=== PATIENT | female | born 1970 | race African-American/Black ===

== ENCOUNTER 2019-06-22 05:45 | Observation (INO) | payer BC ==
[~2019-06-22] VITALS: Ht 175.3 cm; Wt 100.0 kg
[2019-06-22] VITALS (15 sets, daily range): BP systolic 158–224; BP diastolic 54–94
[2019-06-22 06:31] LABS: HEMATOCRIT 29.6 % (37.0-47.0); IMMATURE GRANULOCYTES 0.3 % (0.0-5.0); MEAN CORPUSCULAR HGB 18.6 pG CALC (26.0-32.0); MEAN CORPUSCULAR HGB CONC 29.4 g/L CALC (32.0-36.0); NEUT# 7.05 thou/uL (2.00-7.15); RED BLOOD COUNT 4.68 mill/uL (4.20-5.60); RED CELL DISTRI WIDTH 20.2 % (11.5-15.5)
[2019-06-22 06:50] LABS: ALKALINE PHOSPHATASE 107 u/l (38-126); AMYLASE 71 u/l (30-110); BILIRUBIN, TOTAL 0.6 mg/dL (0.0-1.4); BUN 19 mg/dL (7-17); BUN/CREATININE RATIO 12 (12-20 (CALC)); CHLORIDE 103 mmol/l (95-108); CREATININE 1.5 mg/dL (0.5-1.0); ETHYL ALCOHOL 0 mg/dl (0-30); GFR 37 ML/MIN (>=60 (CALC)); GFR FOR AFR.AMER. 45 ML/MIN (>=60 (CALC)); LIPASE 163 u/l (23-300); POTASSIUM 3.9 mmol/l (3.5-5.1); SGOT/AST 24 u/l (14-36); SODIUM 141 mmol/l (137-146); TOTAL PROTEIN 7.7 g/dL (6.3-8.2)
[2019-06-22 06:53] LABS: ALBUMIN 4.4 g/dL (3.2-5.0); ANION GAP 14 (6-22 (CALC)); CARBON DIOXIDE 28 mmol/l (22-30)
[2019-06-22 06:57] LABS: HEMOGLOBIN 8.7 g/dl (12.0-16.0); MEAN CELL VOLUME 63.2 fL CALC (80.0-100.0)
[2019-06-22 07:01] LABS: MYOGLOBIN 43 ng/mL (0 - 62)
--- NOTE | 2019-06-22 07:06 | NUR ---
PT FEELING MUCH BETTER. BP STILL ELEVATED. REPORT TO KESHIA. CARE RELINQUISHED. FAMILY AT BEDSIDE.
--- NOTE | 2019-06-22 07:15 | NUR ---
AND AWARE OF PT GFR [address] WITH CONTRAST. CT STAFF AWARE
[2019-06-22 07:35] LABS: BARBITURATES NEGATIVE (NEGATIVE); COCAINE NEGATIVE (NEGATIVE); METHADONE NEGATIVE (NEGATIVE); OXCYCODONE NEGATIVE (NEGATIVE); TETRAHYDROCANNABIONOL NEGATIVE (NEGATIVE); TRICYLIC ANTIDEPRESSANTS NEGATIVE (NEGATIVE)
[2019-06-22 07:38] LABS: URINE BILIRUBIN - DIPSTICK NEGATIVE (NEGATIVE); URINE BLOOD DIPSTICK NEGATIVE (NEGATIVE); URINE COLOR YELLOW; URINE GLUCOSE - DIPSTICK NEGATIVE (NEGATIVE); URINE KETONE NEGATIVE (NEGATIVE); URINE LEUK ESTERASE NEGATIVE (NEGATIVE); URINE NITRITE - DIPSTICK NEGATIVE (Negative); URINE PROTEIN - DIPSTICK 30 mg/dL (NEG-TRACE); URINE UROBILINOGEN - DIPSTICK 0.2 E.U./dL (0.2)
[2019-06-22 07:40] LABS: URINE RBC 0-2 RBC/hpf (0-5); URINE WBC 0-2 WBC/hpf (0-5)
--- NOTE | 2019-06-22 07:49 | NUR ---
PT STATES PAIN STARTING TO RETURN, WILL NOTIFY
--- NOTE | 2019-06-22 08:10 | NUR ---
AWARE OF MANUAL BP 240/90
--- NOTE | 2019-06-22 08:31 | NUR ---
PT MEDICATED FOR B/P AND CHRONOMETER ASSEMBLER AND ADJUSTER APPLIED
--- NOTE | 2019-06-22 09:05 | NUR ---
REPEAT BP 230/90 IN R ARM AND 250/90 IN LEFT ARM MANUAL. AT BEDSIDE AND AWARE
--- NOTE | 2019-06-22 09:08 | NUR ---
MEDICATED WITH HYDALAZINE ORDERED
--- NOTE | 2019-06-22 09:42 | NUR ---
B/P REMAINS ELEVATD, PLANS TO START CARDENE GTT AND ADMIT TO ICU
--- NOTE | 2019-06-22 09:54 | NUR ---
REPORT RECIEVED FROM KESHIA ESQUEDA
--- NOTE | 2019-06-22 10:58 | NUR ---
REPORT CALLED TO ICU, THERESA ESQUEDA ACCEPTED PT
--- NOTE | 2019-06-22 11:05 | NUR ---
PT TO ICU BED 5 VIA STRETCHER ACCOMPANIED BY ER NURSE. PT ABLE TO TRANSFER SELF TO BED. PT IS ADMITTED WITH HYPERTENSIVE URGENCY ON A GRETCHEN GTT. CARDENE CURRENTLY AT 10MG/HR. BP 224/90 UPON ARRIVAL TO ICU. HR SR 70S ON MONITOR. PT IS ALERT AND ORIENTED X3. ADMISSION ASSESSMENT COMPLETED AT THIS TIME. IV PATENT X1. ORIENTED PT TO ROOM AND UNIT AND CALL LIGHT SYSTEM PT VERBALIZED UNDERSTANDING. CALL LIGHT IN REACH. WILL CONTINUE TO MONITOR.
--- NOTE | 2019-06-22 11:18 | NUR ---
ELISHA GTT TITRATED PER TITRATION CHARTING
--- NOTE | 2019-06-22 11:30 | NUR ---
PT OFFERRED NOON MEAL AND REFUSED STATES THAT DAUGHTER WILL BRIN HER LUNCH
--- NOTE | 2019-06-22 12:15 | NUR ---
RT AT BEDSIDE FOR EKG
--- NOTE | 2019-06-22 12:29 | NUR ---
LAB AT BEDSIDE AT THIS TIME FOR TROPONIN
--- NOTE | 2019-06-22 12:40 | NUR ---
DR PRABHAKAR AT BEDSIDE AT THIS TIME
--- NOTE | 2019-06-22 13:52 | NUR ---
PT RESTING IN BED WATCHING TV. RESP ARE EVEN AND UNLABORED. NO DISTRESS NOTED. CALL LIGHT IN REACH. WILL CONTINUE TO MONITOR.
--- NOTE | 2019-06-22 14:43 | NUR ---
PT TAKING OFF BLOOD PRESSURE CUFF. CONTINUE TO REINFORCE THAT PATIENT SHOULD LEAVE CUFF IN PLACE DUE TO CARDENE DRIP INFUSING. PT STATES THAT IT HURTS HER ARM AND SHE WILL TAKE IT OFF. PT REFUSES TO HAV EBP TAKEN EVERY 15 MINUTES FOR TITRATION. WILL MONITOR EVERY HOUR
--- NOTE | 2019-06-22 15:10 | NUR ---
PT WITH COMPLAINTS OF BACK PAIN AND ABDOMINAL PAIN. DR PRABHAKAR NOTIFIED NEW ORDERS RECIEVED.
--- NOTE | 2019-06-22 16:00 | NUR ---
PT RESTING IN BED WATCHING TV. RESP ARE EVEN AND UNLABORED. NO DISTRESS NOTED. CALL LIGHT IN REACH.WILL CONTINUE TO MONITOR
--- NOTE | 2019-06-22 17:20 | NUR ---
PT SET UP FOR PM MEAL.
--- NOTE | 2019-06-22 17:58 | NUR ---
LAB AT BEDSIDE AT THIS TIME TO DRAW SERIAL TROPONIN.
--- NOTE | 2019-06-22 19:00 | NUR ---
REPORT RECEIVED FROM DHEERAJ CARDENAS. PT RESTING IN BED SEMI FOWLERS; ALERT AND ORIENTED WITH FAMILY AT BEDSIDE. SHE DOES C/O SOME EPIGASTRIC DISCOMFORT. RESPIRATIONS EVEN AND UNLABORED ON ROOM AIR. ASSESSMENT COMPLETED AT THIS TIME; WNL. CARDENE INFUSING AT 15MG/HR; BLOOD PRESSURE 181/69 HR 80. NEW BAG OF CARDENE INITIATED. PT REQUESTED THAT IV SITE TO LAC BE D/C'D; EXPLAINED POTENTIAL NEED FOR 2ND IV AND PT INSISTS; 18G TO LAC D/C'D WITH TIP INTACT. PLAN OF CARE REVIEWED. PT ENCOURAGED TO VERBALIZE CONCERNS. STATES UNDERSTANDING. SAFETY MEASURES IN PLACE. CALL LIGHT WITHIN REACH.
--- NOTE | 2019-06-22 21:00 | NUR ---
PT AMBULATED TO BATHROOM TO VOID. CONTINUES TO C/O EPIGASTRIC PAIN; SCHEDULED HS MEDICATIONS ADMINISTERED. PT DECLINES ANY ADDITIONAL PAIN MEDICATION AT THIS TIME. NSR ON TELEMETRY.
--- NOTE | 2019-06-22 21:18 | NUR ---
TRAMADOL GIVEN FOR PERSISTANT ACHE 03/17 TO EPIGASTRIC AREA.
--- NOTE | 2019-06-22 22:33 | NUR ---
TRAMADOL INEFFECTIVE FOR PAIN; MORPHINE ADMINISTERED IV. SCHEDULED LISINOPRIL ALSO GIVEN.
--- NOTE | 2019-06-22 22:50 | NUR ---
MORPHINE WAS EFFECTIVE FOR PAIN; PT NOW REPORTS A 0/10, BUT NO HAS A HEADACHE. COOL CLOTH APPLIED TO HEAD. NEW BAG OF CARDENE INFUSING; CONTINUES AT 15MG/HR. BP 177/65 HR 75.
[2019-06-23] VITALS (25 sets, daily range): BP systolic 146–214; BP diastolic 52–76
--- NOTE | 2019-06-23 00:16 | NUR ---
LAB AT BEDSIDE.
--- NOTE | 2019-06-23 02:19 | NUR ---
PT AMBULATED TO BATHROOM TO VOID; NOW ASLEEP WITH EYES CLOSED AND NO SIGNS OF DISTRESS. RESPIRATIONS EVEN AND UNLABORED ON ROOM AIR. IV SITE APPEARS HEALTHY. CALL LIGHT WITHIN REACH.
--- NOTE | 2019-06-23 04:12 | NUR ---
BLOOD PRESSURE 161/60; JUST OVER TARGET BLOOD PRESSURE; WILL CONTINUE CARDENE DRIP AT MAX DOSE 15MG/HR AND CONTINUE TO MONITOR. PT ASLEEP WITH NO SIGNS OF DISTRESS. SAFETY MEASURES IN PLACE.
--- NOTE | 2019-06-23 04:55 | NUR ---
LAB AT BEDSIDE.
[2019-06-23 05:14] LABS: HEMOGLOBIN 7.6 g/dl (12.0-16.0); MEAN CELL VOLUME 63.7 fL CALC (80.0-100.0); MEAN CORPUSCULAR HGB 18.6 pG CALC (26.0-32.0); MEAN CORPUSCULAR HGB CONC 29.2 g/L CALC (32.0-36.0); RED BLOOD COUNT 4.08 mill/uL (4.20-5.60); RED CELL DISTRI WIDTH 20.1 % (11.5-15.5)
[2019-06-23 05:29] LABS: ANION GAP 10 (6-22 (CALC)); BUN 8 mg/dL (7-17); BUN/CREATININE RATIO 8 (12-20 (CALC)); CHLORIDE 111 mmol/l (95-108); GFR 59 ML/MIN (>=60 (CALC)); GFR FOR AFR.AMER. > 60 ML/MIN (>=60 (CALC)); POTASSIUM 3.6 mmol/l (3.5-5.1); SODIUM 138 mmol/l (137-146)
[2019-06-23 05:33] LABS: CARBON DIOXIDE 21 mmol/l (22-30)
--- NOTE | 2019-06-23 07:00 | NUR ---
PT RESTING IN BED AWAKE. PT IS ALERT AND ORIENTED X3. SHIFT ASSESSMENT COMPLETED AT THIS TIME. IV PATENT X1. CALL LIGHT IN REACH. WILL CONTINUE TO CLOSELY MONITOR.
--- NOTE | 2019-06-23 07:30 | NUR ---
PT ASSISTED UP TO RESTROOM TO VOID AND THEN TO CHAIR. PT PROVIDED ITEMS FOR PERSONAL HYGIENE AND AM CARE.
--- NOTE | 2019-06-23 07:50 | NUR ---
PT SET UP FOR PM MEAL
--- NOTE | 2019-06-23 08:20 | NUR ---
PT ASSISTED BACK TO BED. TOLERATED WELL
--- NOTE | 2019-06-23 08:56 | NUR ---
DR PRABHAKAR AT BEDSIDE AT THIS TIME
--- NOTE | 2019-06-23 11:27 | NUR ---
PT SET UP FOR NOON MEAL. VISITORS IN ROOM. WILL CONTINUE TO CLOSELY MONITOR.
--- NOTE | 2019-06-23 12:00 | NUR ---
PT RESTING INBED WATCHING TV. RESP ARE EVEN AND UNLABORED. NO DISTRESS NOTED. CALL LIGHT IN REACH. WILL CONTINUE TO CLOSELY MONITOR.
--- NOTE | 2019-06-23 13:48 | NUR ---
PT SITTING UP IN BED AWAKE WATCHING TV. PT RESP ARE EVEN AND UNLABORED. NO DISTRESS NOTED. CALL LIGHT IN REACH. WILL CONTINUE TO MONITOR.
--- NOTE | 2019-06-23 15:30 | NUR ---
RECIEVED REPORT FROM THERESA. PT RESTING IN BE WATCHING TV. NO NEEDS AT THIS TIME. WILL CONTINUE TO MONITOR.
--- NOTE | 2019-06-23 15:34 | NUR ---
PT SITTING UP ON SIDE OF BED. WATCHING TV. RESP ARE EVEN AND UNLABORED. NO DISTRESS NTOED. CALL LIGHT IN REACH. REPORT GIVEN TO MAGDA MARY.
--- NOTE | 2019-06-23 18:00 | NUR ---
pt sitting up on side of the bed with family at bedside. no needs at this time. call dunn in reach. will continue to monitor.
--- NOTE | 2019-06-23 19:00 | NUR ---
REPORT RECEIVED FROM TYRA MAN. PT SITTING UP IN BED; ALERT AND ORIENTED. C/O 6/10 LOWER BACK PAIN; TRAMADOL ADMINSITERED. SHE ALSO C/O CONSTIPATION AND REQUESTS A STOOL SOFTER; MILK OF MAGNESIA GIVEN WELL. RESPIRATIONS EVEN AND UNLABORED ON ROOM AIR. IV SITE APPEARS HEALTHY AND FLUSHES. PLAN OF CARE REVIEWED. PT ENCOURAGED TO VERABLIZE CONCERNS. STATES UNDERSTANDING. SAFETY MEASURES IN PLACE. CALL LIGHT WITHIN REACH.
--- NOTE | 2019-06-23 20:31 | NUR ---
TRAMADOL NOT EFFECTIVE; MORPHINE GIVEN FOR SEVERE LOWER BACK PAIN. PT AMBULATING IN ROOM AND REPOSITIONING. BLOOD PRESSURE REMAINS ELEVATED; SCHEDULED LISINOPRIL GIVEN. WILL CONTINUE TO MONITOR.
--- NOTE | 2019-06-23 23:33 | NUR ---
APRESOLINE ADMINSITERED FOR SBP IN THE 180'S. RT AT BEDSIDE EARLIER FOR BREATHING TREATMENT. NICOTINE PATCH APPLIED TO RIGHT UPPER ARM.
[2019-06-24] VITALS (7 sets, daily range): BP systolic 179–216; BP diastolic 62–81
--- NOTE | 2019-06-24 02:08 | NUR ---
PT AMBULATED TO BATHROOM TO VOID. DENIES PAIN AT THIS TIME. RESPIRATIONS EVEN AND UNLABORED. NO REQUESTS OR CONCERNS. BP 188/62. CALL LIGHT WITHIN REACH.
--- NOTE | 2019-06-24 04:39 | NUR ---
APRESOLINE ADMINSITERED FOR BP 197/78 HR 80.
--- NOTE | 2019-06-24 05:30 | NUR ---
LAB AT BEDSIDE.
[2019-06-24 05:41] LABS: HEMATOCRIT 27.3 % (37.0-47.0); HEMOGLOBIN 8.2 g/dl (12.0-16.0); MEAN CORPUSCULAR HGB 18.9 pG CALC (26.0-32.0); RED BLOOD COUNT 4.33 mill/uL (4.20-5.60); RED CELL DISTRI WIDTH 20.4 % (11.5-15.5)
--- NOTE | 2019-06-24 05:57 | NUR ---
RT AT BEDSIDE FOR BREATHING TREATMENT.
[2019-06-24 05:59] LABS: ANION GAP 11 (6-22 (CALC)); BUN 6 mg/dL (7-17); BUN/CREATININE RATIO 6 (12-20 (CALC)); CARBON DIOXIDE 21 mmol/l (22-30); CHLORIDE 110 mmol/l (95-108); GFR 59 ML/MIN (>=60 (CALC)); GFR FOR AFR.AMER. > 60 ML/MIN (>=60 (CALC)); POTASSIUM 3.9 mmol/l (3.5-5.1); SODIUM 137 mmol/l (137-146)
--- NOTE | 2019-06-24 07:20 | NUR ---
REPORT RECEIVED DOROTHEA GUERRERO RN. PT SITTING UPRIGHT IN BED. REPORTS DIFFICULTY SLEEPING. DENIES PAIN. NO SOB NOTED. REPORTING OF CONCERNS ENCOURAGED. CALL LIGHT REVIEWED AND IN REACH. PT STATES UNDERSTANDING.
[2019-06-24] MEDS ORDERED: AMLODIPINE BESYL5 MG PO (09:42)
[2019-06-24] MEDS ORDERED: PANTOPRAZOLE SO40 M1 PO (09:42)
[2019-06-24] MEDS ORDERED: LISINOPRIL20 M1 PO (09:42)
[2019-06-24] MEDS ORDERED: FERR SULFATE325 MG PO (09:44)
--- NOTE | 2019-06-24 10:36 | NUR ---
DR. PRABHAKAR IN TO SEE PT. PLAN OF CARE DISCUSSED. DISCHARGE HOME, COMPLAINCE W/ MEDS, SMOKING/ALCOHOL CESSATION DISCUSSED. PT STATES UNDERSTANDING. BP STILL ELEVATED, 190/74, DR. PRABHAKAR AWARE.
--- NOTE | 2019-06-24 10:53 | NUR ---
Discharge instructions given. Patient verbalizes understanding of same. Discharged in stable condition via Wheelchair to Home with family. All belongings sent with pt.
== END 2019-06-24 10:53 | disposition home or self-care (01) | DRG 305 ==
LOC: ED 05:45 → ED-I 09:30 → ED 10:00 → ICU 10:01
PROVIDERS: Family Medicine; ADMIT Internal Medicine; ATTEND Internal Medicine
DX: I16.0 Hypertensive urgency (principal); I10 Essential (primary) hypertension; R10.13 Epigastric pain; D50.9 Iron deficiency anemia, unspecified; F10.10 Alcohol abuse, uncomplicated; F17.200 Nicotine dependence, unspecified, uncomplicated; T46.5X6A Underdosing of other antihypertensive drugs, initial encounter; Z91.128 Patient's intentional underdosing of medication regimen for other reason; Z83.2 Family history of diseases of the blood and blood-forming organs and certain disorders involving the immune mechanism
CPT/HCPCS: J1756; Q9966

== ENCOUNTER 2019-07-04 21:36 | Emergency (ER) | payer BC ==
[~2019-07-04] VITALS: Ht 175.3 cm; Wt 92.7 kg
[~2019-07-04 21:36] MED LIST: AMLODIPINE BESYL5 MG PO; FERR SULFATE325 MG PO; LISINOPRIL20 M1 PO; PANTOPRAZOLE SO40 M1 PO
[2019-07-04] MEDS ORDERED: LOSARTAN/HCT1 TA2 PO (21:53)
[2019-07-04] MEDS ORDERED: AMLODIPINE BESYL5 MG PO (22:44)
[2019-07-04] MEDS ORDERED: PREDNISONE50 MG PO (22:44)
[2019-07-04 22:45] VITALS: BP 150/69
== END 2019-07-04 22:45 | disposition home or self-care (01) | DRG 74 ==
LOC: ED 21:36
DX: G57.21 Lesion of femoral nerve, right lower limb (principal); I10 Essential (primary) hypertension

== ENCOUNTER 2019-07-12 15:11 | Inpatient (IN) | payer BC ==
[~2019-07-12] VITALS: Ht 175.3 cm; Wt 87.0 kg
[~2019-07-12 15:11] MED LIST changes: +LOSARTAN/HCT1 TA2 PO; +PREDNISONE50 MG PO
--- NOTE | 2019-07-12 15:21 | NUR ---
PT AMBUALOTRY TO ROOM WIH STRADY GAIT
--- NOTE | 2019-07-12 15:35 | NUR ---
PT PRESENTS WITH PAIN IN UPPER RIGHT THEIGH. PT STATES A PAIN 10/10. PT ALSO MENTIONS HAVING A "NODUAL" IN THE THEIGH. PT BP IS ELEVATED AT 242/107 HR 86. MD NOTIFIED. WILL CONTINUE TO MONITOR. PT MENTIONS TAKING BP MEDICATION THIS MORNING.
--- NOTE | 2019-07-12 15:41 | NUR ---
PT IN ROOM PROVIDING URINE SAMPLE IN URINAL
--- NOTE | 2019-07-12 16:27 | NUR ---
PT RESTING IN ROOM, PT DENIES ANY NEEDS AT THIS TIME. WILL CONTINUE TO MONITOR.
[2019-07-12 16:29] LABS: IMMATURE GRANULOCYTES 0.9 % (0.0-5.0); MEAN CELL VOLUME 66.2 fL CALC (80.0-100.0); MEAN CORPUSCULAR HGB 19.6 pG CALC (26.0-32.0); MEAN CORPUSCULAR HGB CONC 29.6 g/L CALC (32.0-36.0); NEUT# 5.3 thou/uL (2.00-7.15); RED BLOOD COUNT 5.97 mill/uL (4.20-5.60); RED CELL DISTRI WIDTH 27.8 % (11.5-15.5)
[2019-07-12 16:30] LABS: HEMATOCRIT 39.5 % (37.0-47.0); HEMOGLOBIN 11.7 g/dl (12.0-16.0)
[2019-07-12 16:36] LABS: ALBUMIN 4.7 g/dL (3.2-5.0); POTASSIUM 3.9 mmol/l (3.5-5.1); TOTAL PROTEIN 9.1 g/dL (6.3-8.2)
[2019-07-12 16:37] LABS: BILIRUBIN, TOTAL 0.3 mg/dL (0.0-1.4); CREATININE 3.4 mg/dL (0.5-1.0)
--- NOTE | 2019-07-12 16:48 | NUR ---
FIRST 10 MG OF LABATOLOL STARTING BP 208/81 HR 81 AFTER FIRST 10 MG BP 197/83 HR 67
--- NOTE | 2019-07-12 16:50 | NUR ---
2ND DOSE OF LABATOLOL 10 MG STARTING BP 197/83 HR 68 AFTER ADMINISTRATION BP 168/59 HR 63
[2019-07-12] MEDS ORDERED: CVS STOOL SOFT PO (17:28)
--- NOTE | 2019-07-12 17:33 | NUR ---
PT RESTING IN ROOM ON PHONE. PT DENIES ANY NEEDS AT THIS TIME.
--- NOTE | 2019-07-12 18:08 | NUR ---
PT RESTING ON STRETCHER REQUESTING WATER, OTHER THAN THAN PT DENIES ANY FURTHER NEEDS AT THIS TIME. WILL CONTINUE TO MONITOR.
--- NOTE | 2019-07-12 18:55 | NUR ---
REPORT TRINIDAD TO [facility] REPORT TR[facility] TO [facility] REQUESTED FOR ER DOC TO [facility] FOR PT PER TO CONTACT ADMITTING DOCTOR SHE IS ALREADY UNDER ADMITTING DOC CARE.
--- NOTE | 2019-07-12 19:25 | NUR ---
TO ROOM VIA STRETCHER
--- NOTE | 2019-07-12 19:45 | NUR ---
RECEIVED REPORT FROM ED NURSE YOGI, PATIENT TRANSPORTED VIA BED, PATIENT ORIENTED TO ROOM AND CALL LIGHT SYSTEM.
[2019-07-12 19:50] VITALS: BP 184/81
--- NOTE | 2019-07-12 20:25 | NUR ---
1ST UNIT OF PRBC ONGOING, NO ALLERGIC REACTIONS NOTED AT THIS TIME, CALL LIGHT AT REACH.
--- NOTE | 2019-07-12 20:38 | NUR ---
SPOKE TO DR. MACDONALD ABOUT LEFT LEG PAIN, AND BP OF 220/84, WITH ORDERS MADE, FAX TO PHARMACY
[2019-07-12 22:52] VITALS: BP 185/80
[2019-07-13] VITALS (9 sets, daily range): BP systolic 151–190; BP diastolic 62–82
--- NOTE | 2019-07-13 01:00 | NUR ---
PATIENT APPEARS TO BE SLEEPING WITH EYES CLOSED, EVEN UNLABORED BREATHING CALL LIGHT AT REACH.
--- NOTE | 2019-07-13 05:09 | NUR ---
PATIENT RESTING IN BED WITH YES CLOSED, WITH EVEN UNLABORED BREATHING CALL LIGHT AT REACH.
[2019-07-13 05:23] LABS: CREATININE 2.6 mg/dL (0.5-1.0); MAGNESIUM 2.5 mg/dL (1.6-2.3); POTASSIUM 4.3 mmol/l (3.5-5.1)
--- NOTE | 2019-07-13 08:05 | NUR ---
ASSESSMENT DONE. PT IS A&O X3. PT STATED PAIN IN RIGHT LEG . PT REFUSED PAIN MEDICATION AT THIS TIME. TELE IN PLACE. IVF INFUSING WELL. RESP EVEN AND UNLABORED. PT DENIES ANY NEEDS AT THIS TIME. CALL LIGHT IN REACH.
[2019-07-13 08:19] LABS: URINE BILIRUBIN - DIPSTICK NEGATIVE (NEGATIVE); URINE BLOOD DIPSTICK NEGATIVE (NEGATIVE); URINE COLOR YELLOW; URINE GLUCOSE - DIPSTICK NEGATIVE (NEGATIVE); URINE KETONE NEGATIVE (NEGATIVE); URINE LEUK ESTERASE NEGATIVE (NEGATIVE); URINE NITRITE - DIPSTICK NEGATIVE (Negative); URINE PH 5.5 (4.5-8.0); URINE PROTEIN - DIPSTICK NEGATIVE (NEG-TRACE); URINE UROBILINOGEN - DIPSTICK 0.2 E.U./dL (0.2)
[2019-07-13 08:24] LABS: BARBITURATES NEGATIVE (NEGATIVE); COCAINE NEGATIVE (NEGATIVE); METHADONE NEGATIVE (NEGATIVE); OXCYCODONE NEGATIVE (NEGATIVE); TETRAHYDROCANNABIONOL NEGATIVE (NEGATIVE); TRICYLIC ANTIDEPRESSANTS NEGATIVE (NEGATIVE)
[2019-07-13 09:22] LABS: HEMATOCRIT 34.3 % (37.0-47.0); HEMOGLOBIN 10.3 g/dl (12.0-16.0); IMMATURE GRANULOCYTES 0.9 % (0.0-5.0); MEAN CELL VOLUME 66.5 fL CALC (80.0-100.0); NEUT# 4.89 thou/uL (2.00-7.15); RED BLOOD COUNT 5.16 mill/uL (4.20-5.60); RED CELL DISTRI WIDTH 27.7 % (11.5-15.5)
--- NOTE | 2019-07-13 11:47 | NUR ---
MEDICATED PT WITH LABETALOL FOR BP 172/80. PT DENIES NEEDS. CALL LIGHT IN REACH. NOTIFIED CARRIE DIAS Re: PT BP. NO NEW ORDERS RECEIVED AT THIS.
--- NOTE | 2019-07-13 16:30 | NUR ---
PT SITTING IN RECLINER VISITING WITH FAMILY IN ROOM. PT DENIES ANY NEEDS AT THIS TIME. CALL LIGHT IN REACH.
--- NOTE | 2019-07-13 17:07 | NUR ---
NOTIFIED CARRIE DIAS RE: PT BP 174/70. CARRIE STATED WILL REVIEW
--- NOTE | 2019-07-13 19:00 | NUR ---
RECEIVED REPORT FROM DAYSHIFT NURSE PT SITTING IN BED, EATING DINNER, FAMILY IN ROOM, CALL LIGHT AT REACH.
--- NOTE | 2019-07-13 21:30 | NUR ---
PATIENT ALERT AND ORIENTED ABLE TO MAKE NEED KNOWN, WITH AN ONGOING IV OF NORMAL SALINE @ 100CC/HR INFUSING WELL ON RAC, C/O PAIN ON RT THIGH PS 10/10, PRN LORTAB GIVEN WITLL REEVALUATE.
[2019-07-14] VITALS (7 sets, daily range): BP systolic 145–196; BP diastolic 66–86
--- NOTE | 2019-07-14 02:44 | NUR ---
PATIENT RESTING IN BED AT THIS TIME, WITH EVEN UNLABORED BREATHING CALL LIGHT AT REACH.
[2019-07-14 05:43] LABS: POTASSIUM 4.7 mmol/l (3.5-5.1)
--- NOTE | 2019-07-14 05:46 | NUR ---
PATIENT C/O PAIN ON RT THIGH AT THIS TIEM, PRN LORTAB GIVEN WILL REEVALUATE.
[2019-07-14 05:49] LABS: ALBUMIN 3.6 g/dL (3.2-5.0); CREATININE 1.6 mg/dL (0.5-1.0)
--- NOTE | 2019-07-14 07:00 | NUR ---
RECIUEBED REPORT FROM NIGHT NURSE. NO NEEDS AT THIS TIME. WILL CINTINUE TO MONITOR.
--- NOTE | 2019-07-14 08:12 | NUR ---
I spoke with about the consultation ordered for ATA. He stated that he reviewed the lab work from last night and to inform that he did so. I spoke with him at 0810 am by his cell number.
--- NOTE | 2019-07-14 08:19 | NUR ---
PT RESTING IN BED WATCHING TV. ASSESMENT COMPLETED AT THIS TIME. IV INFUSING WELL. NO NEEDS AT THIS TIME. WILL CONTIUE TO MONITOR.
--- NOTE | 2019-07-14 12:00 | NUR ---
PT RESTING IN BED. NO NEEDS AT THIS TIME. IV INFUSING WELL WILL CONTINUE TO MONITOR.
--- NOTE | 2019-07-14 16:00 | NUR ---
PT SITIING ON THE SIDE OF THE BED WATCHING TV. NO NEEDS AT THIS TIME. CALL DOWNING IN REACH. WILL CONTINUE TO MONITOR
--- NOTE | 2019-07-14 20:00 | NUR ---
ASSESSMENT COMPLETED. NO DISTRESS NOTED. IV SITE NOTED WITH CATHETER ALMOST COMPLETELY OUT, REMOVED AT THIS TIME AND CATHETER TIP INTACT. NEW IV STARTED TO LEFT HAND #22 GAUGE X1 ATTEMPT AND FLUSHES WELL. REPORTS PAIN IS NOW DOWN TO A 5/10 AND DENIES FURTHER NEEDS. ENCOURAGED TO CALL FOR ANY NEEDS. CALL LIGHT IS IN REACH. WILL CONTINUE TO MONITOR.
--- NOTE | 2019-07-14 20:53 | NUR ---
PT. MEDICATED WITH ORDERED PRN APRESOLINE FOR B/P 178/76; WILL REASSESS. URINE EMPTIED AND FRESH WATER GIVEN. DENIES NEEDS. CALL LIGHT IS IN REACH.
--- NOTE | 2019-07-15 00:05 | NUR ---
SITTING UP ON THE SIDE OF THE BED AND DENIES NEEDS. VSS. NEW BAG OF ORDERED IVF HUNG. CALL LIGHT IS IN REACH.
[2019-07-15 00:08] VITALS: BP 144/65
--- NOTE | 2019-07-15 02:03 | NUR ---
PT. SITTING UP IN BED WITH NO DISTRESS NOTED; RESP. EVEN AND UNLABORED. DENIES NEEDS AND VOICES NO CONCERNS. CALL LIGHT IS IN REACH. ENCOURAGED TO CALL FOR ANY NEEDS.
[2019-07-15 03:43] VITALS: BP 201/82
--- NOTE | 2019-07-15 03:52 | NUR ---
MEDICATED WITH ORDERED PRN LORTAB AND APRESOLINE FOR HTN AND C/O RLE PAIN; WILL REASSESS; DENIES FURTHER NEEDS. CALL LIGHT IS IN REACH.
[2019-07-15 05:06] VITALS: BP 175/74
--- NOTE | 2019-07-15 05:10 | NUR ---
B/P 175/74, MEDICATED WITH ORDERED PRN CLONIDINE; WILL REASSESS. PT. STILL REPORT PAIN TO RIGHT THIGH, WARM PACK APPLIED, DENIES WANTS FOR PRN TYLENOL. WILL REASSESS AND CONTINUE TO MONITOR. DENIES FURTHER NEEDS. CALL LIGHT IS IN REACH.
[2019-07-15 06:12] VITALS: BP 164/70
--- NOTE | 2019-07-15 07:00 | NUR ---
RECIEVED REPROT FROM NIGHT NURSE. PT RESTING IN BED WITH EYESC LOSED. NO S/S OF DISTRESS NOTED. CALL DOWNING IN REACH. WILL CONTINUE TO MONITOR.
--- NOTE | 2019-07-15 08:02 | NUR ---
PT RESTING IN BED. WAKES TO VERBAL STIMULI. C/O SOME PAIN TO R THIGH STILL AFTER AM PAIN MEDS. ASSESMENT COMPLETED AT THIS TIME. IV INFUSING WELL. NO NEEDS AT THIS TIME. WILL CONTINUE TO MONITOR.
[2019-07-15 08:27] LABS: CREATININE 1.2 mg/dL (0.5-1.0); POTASSIUM 4.3 mmol/l (3.5-5.1)
[2019-07-15 10:56] VITALS: BP 168/68
[2019-07-15] MEDS ORDERED: AMLODIPINE BESYL5 MG PO (11:59)
[2019-07-15] MEDS ORDERED: GABAPENTIN300 M2 PO (11:59)
[2019-07-15] MEDS ORDERED: catapres PO (11:59)
[2019-07-15] MEDS ORDERED: NORMODYNE/100 MG/TA1 PO (11:59)
--- NOTE | 2019-07-15 12:55 | NUR ---
Discharge instructions given. Patient verbalizes understanding of same. Discharged in stable condition via Wheelchair to Home with family. All belongings sent with pt.
== END 2019-07-15 13:00 | disposition home or self-care (01) | DRG 305 ==
LOC: ED 15:11 → ED-I 15:47 → ED 17:41 → MS2 17:42
PROVIDERS: Emergency Medicine; Nurse Practitioner Family; ADMIT Internal Medicine; ATTEND Internal Medicine
DX: I16.0 Hypertensive urgency (principal); N17.9 Acute kidney failure, unspecified; D50.9 Iron deficiency anemia, unspecified; G62.9 Polyneuropathy, unspecified; F17.210 Nicotine dependence, cigarettes, uncomplicated; K29.70 Gastritis, unspecified, without bleeding
CPT/HCPCS: A9579

== ENCOUNTER 2019-09-09 | Day surgery (SDC) | payer BC ==
[~2019-09-09] MED LIST changes: +CVS STOOL SOFT PO; +DOCUSATE CAL240 MG PO; +GABAPENTIN300 M2 PO; +NORMODYNE/100 MG/TA1 PO; +catapres PO
[2019-09-09] MEDS ORDERED: PERCOCET 5/325M1 TAB PO (10:19)
== END 2019-09-09 11:00 | disposition home or self-care (01) | DRG 572 ==
PROC: 0JBL0ZZ Excision of Right Upper Leg Subcutaneous Tissue and Fascia, Open Approach (ICD-10-PCS; principal; 2019-09-09)
DX: D17.23 Benign lipomatous neoplasm of skin and subcutaneous tissue of right leg (principal); I10 Essential (primary) hypertension; F17.210 Nicotine dependence, cigarettes, uncomplicated
CPT/HCPCS: J0131; J1100